=== PATIENT | female | born 1980 | race Caucasian/White ===

== ENCOUNTER 2017-03-01 06:22 | Emergency (ER) | payer BC ==
[~2017-03-01] VITALS: Wt 109.0 kg
[~2017-03-01 06:22] MED LIST: LEVO137T3 PO
--- NOTE | 2017-03-01 06:41 | ERD ---
ER Documentation Chief Complaint Date/Time DATE: 03/01/17 Chief Complaint Left wrist pain and swelling HPI The patient is a 36-year-old right-hand dominant female with past medical history of hypothyroidism, who presents to the Emergency Department with complaint of left wrist pain and swelling for the past 4 days. The patient reports that on Saturday she noted mild pain and swelling to the dorsum of the left wrist. The pain is localized to the ulnar aspect, and radiates to and from the left medial elbow. It is associated with intermittent paresthesias, that extend through the patient's 4th and 5th digits of the hand. The pain is worse with movement, palpation, pronation/supination, and mildly improved at rest. She denies any numbness or weakness of the distal extremity. Denies any restricted range of motion. Denies any fevers, sweats, chills, nausea or vomiting. Denies history of similar symptoms in the past. Denies any falls, injury or trauma to the wrist. Denies any erythema or warmth. ROS All systems reviewed and are negative except as per history of present illness. Medications Home Meds Active Scripts Acetaminophen* (Tylophen*) 500 Mg Capsule, 1 CAP PO Q6H Y for PAIN AND OR ELEVATED TEMP, #20 CAP Prov:SMITH WINN PA-C 03/01/17 Reported Medications Levothyroxine Sodium* (Levothyroxine Sodium*) 137 Mcg Tablet, 137 MCG PO AC BREAKFAST, TAB 08/27/14 Allergies Allergies: Coded Allergies: ibuprofen (Unverified Allergy, Unknown, 01/21/15) PMhx/Soc History of Surgery: No Anesthesia Reaction: No Hx Neurological Disorder: Yes (hyperthyroidism) Hx Respiratory Disorders: No Hx Cardiac Disorders: No Hx Psychiatric Problems: No Hx Miscellaneous Medical Probl: Yes (Hypothyroidism) Hx Alcohol Use: No Hx Substance Use: No Hx Tobacco Use: No Physical Exam Vitals Vital Signs Date Time Temp Pulse Resp B/P Pulse Ox O2 Delivery O2 Flow Rate FiO2 03/01/17 06:30 97.8 82 17 138/66 96 Physical Exam GENERAL: Well-developed, well-nourished, female, in no acute distress. Nontoxic. Well-appearing. HEENT: Head is normocephalic, atraumatic. No scleral pallor or icterus. Pupils equal, round and reactive to light. Conjunctiva pink. Moist mucous membranes. NECK: Supple. RESPIRATORY: Lungs are clear to auscultation bilaterally. Equal breath sounds. Normal expiratory effort. CARDIOVASCULAR: Regular rate and rhythm. S1 and S2 normal. EXTREMITIES: Moderate swelling to the dorsum of the left wrist joint with tenderness to palpation. Negative Tinel sign at the wrist. Positive Tinel sign at the left elbow. Negative Phalen maneuver. Negative Suresh's test. Normal skin perfusion. Full range of motion of both the upper and lower extremities bilaterally. Muscle tone is normal. Distal neurovascular status intact. Compartments are soft. Distal pulses are palpable, 2+ bilaterally. Capillary refill is less than 2 seconds. NEUROLOGIC: The patient is alert, awake, and oriented x 3. No focal neurologic deficits. Motor and sensation grossly intact. INTEGUMENT: Skin is intact. Warm and dry. No rashes, no petechiae present. Normal turgor. PSYCHIATRIC: Cooperative; appropriate. Results 24 hrs Current Medications Medications (Trade) Dose Ordered Sig/Mario Route PRN Reason Start Time Stop Time Status Last Admin Dose Admin Ibuprofen (Motrin) 600 mg ONCE ONCE PO 03/01/17 07:00 03/01/17 07:01 DC Procedures/MDM DIAGNOSTIC TESTS AND INTERPRETATION: PROCEDURE: Left wrist series CLINICAL INDICATION: swelling, pain TECHNIQUE: AP, lateral and bilateral oblique views of the left wrist were performed. A total 4 images were obtained COMPARISON: No prior studies are available for comparison. FINDINGS:There is no evidence of acute fractures or dislocations. Bony mineralization is normal. There are no focal bony blastic or lytic lesions. No evidence of erosions. The soft tissues are unremarkable. IMPRESSION:Negative left wrist series. Physician Dafne Date Time Electronically viewed and signed by Physician Dafne on 03/01/2017 07:15 PROCEDURE: US left upper extremity venous. CLINICAL INDICATION: Left upper extremity swelling TECHNIQUE: Multiple longitudinal and transverse images of the left upper extremity veins were obtained with kiser scale and color Doppler imaging. 2D grayscale measurements with compression, color Doppler flow, and augmentation was performed. COMPARISON: None. FINDINGS: The left jugular vein, subclavian vein, axillary vein, brachial, ulnar , and radial veins are normally compressible throughout. The left upper basilic vein is not well visualized. The cephalic vein is patent. IMPRESSION: No evidence of a deep vein thrombosis involving the left upper extremity. .Joe Ortiz MD, Date Time Electronically viewed and signed by .Joe Ortiz MD, MD on 03/01/2017 07:40 SPLINT APPLICATION: INDICATION: Left ulnar neuropathy. LOCATION: Left upper extremity. TYPE OF SPLINT: Velcro wrist splint NEUROVASCULAR EXAM: The patients extremity was neurovascularly intact prior to and status post splint placement. MEDICAL DECISION MAKING: This is a 36-year-old female presenting to the Emergency Department with complaint of paresthesias and pain radiating from the left medial elbow down towards the fourth and fifth digits of the left upper extremity. On physical examination, she had a positive Tinel test at the left elbow, indicating possible ulnar neuropathy. She had no recent trauma, falls or injuries, no gross deformities noted, and therefore I doubt fracture, dislocation or subluxation. No evidence of fracture, dislocation, subluxation on x-ray. Normal range of motion, with no increased tenseness of the muscles, no evidence of compartment syndrome. Distally she was neurovascularly intact with no deficits, no restricted range of motion. No focal erythema or warmth, no fevers or systemic symptoms, no evidence of septic joint. Patient had a normal neurologic examination, she is young and healthy, and therefore I doubt CVA/mass/lesion. No evidence of DVT. After rest the patient reports no new complaints and decreased pain. Discussed that patient's results may be secondary to underlying ulnar neuropathy. She is advised to follow up with her primary medical provider and/or orthopedics in 2-3 days for reevaluation and further management, or return to the ED sooner for any new or worsening symptoms. Further testing may be performed as an outpatient. Velcro wrist splint placed to LUE. I shared my medical decision making and plan with the patient and mom, who comply and agree with plan. At the time of discharge, all questions were answered. Departure Diagnosis: Primary Impression: Ulnar neuropathy Laterality: left Qualified Code: G56.22 - Ulnar neuropathy of left upper extremity Condition: Stable Patient Instructions: Neuropathy, Peripheral Referrals: OLIVIA MILLER MD Additional Instructions: Call your primary care doctor TOMORROW for an appointment during the next 2-3 days.See the doctor sooner or return here if your condition worsens before your appointment time. SMITH WINN PA-C March 01, 2017 06:40
[2017-03-01] MEDS ORDERED: IBUPROFEN 600 MG TAB PO ONE (07:00)
--- NOTE | 2017-03-01 07:15 | RADRPT ---
PROCEDURE: Left wrist series CLINICAL INDICATION: swelling, pain TECHNIQUE: AP, lateral and bilateral oblique views of the left wrist were performed. A total 4 [place] ges were obtained COMPARISON: No prior studies are available for comparison. FINDINGS: There is no evidence of acute fractures or dislocations. Bony mineralization is normal. There are no focal bony blastic or lytic lesions. No evidence of erosions. The soft tissues are unremarkable . IMPRESSION: Negative left wrist series. RPTAT:AAJJ Physician Dafne Date Time Electronically viewed and signed by Valeriy Galloway Physician on 03/01/2017 07:15 /
--- NOTE | 2017-03-01 07:35 | RADRPT ---
PROCEDURE: US left upper extremity venous. CLINICAL INDICATION: Left upper extremity swelling TECHNIQUE: Multiple longitudinal and transverse images of the left upper extremity veins were obta ined with kiser scale and color Doppler imaging. 2D grayscale measurements with compression, color D oppler flow, and augmentation was performed. COMPARISON: None. FINDINGS: The left jugular vein, subclavian vein, axillary vein, brachial, ulnar, and radial veins are normall y compressible throughout. The left upper basilic vein is not well visualized. The cephalic vein i s patent. IMPRESSION: 1. No evidence of a deep vein thrombosis involving the left upper extremity. RPTAT: EE .Joe Ortiz MD, MD Date Time Electronically viewed and signed by .Joe Ortiz MD, MD on 03/01/2017 07:40 .C/
[2017-03-01] MEDS ORDERED: IBUP-1542 PO (08:09)
[2017-03-01] MEDS ORDERED: ACET500C5 PO (08:13)
== END 2017-03-01 08:11 | disposition home or self-care (01) ==
LOC: FTE 06:22
DX: G56.22 Lesion of ulnar nerve, left upper limb (principal); E03.9 Hypothyroidism, unspecified
CPT/HCPCS: 93971

== ENCOUNTER 2017-06-23 06:15 | Emergency (ER) | payer BC ==
[~2017-06-23] VITALS: Ht 160 cm; Wt 111.0 kg
[~2017-06-23 06:15] MED LIST changes: +ACET500C5 PO
[2017-06-23 06:18] VITALS: Ht 160 cm; Wt 111.0 kg
[2017-06-23 07:42] LABS: ADD UMIC YES; UR ASCORBIC ACID NEGATIVE (NEGATIVE); UR BILIRUBIN (Dip) NEGATIVE (NEGATIVE); UR BLOOD (Dip) 1+ mg/dL (NEGATIVE); UR CLARITY CLEAR (CLEAR); UR COLOR YELLOW (YELLOW); UR GLUCOSE (Dip) NEGATIVE (NEGATIVE); UR KETONES (Dip) NEGATIVE (NEGATIVE); UR LEUKOCYTE ESTERASE (Dip) NEGATIVE Leu/ul (NEGATIVE); UR MUCUS FEW /HPF (NONE SEEN); UR NITRITE (Dip) NEGATIVE (NEGATIVE); UR RBC 1 /HPF (0-5); UR SPECIFIC GRAVITY (Dip) 1.014 (1.003-1.030); UR TOTAL PROTEIN (Dip) NEGATIVE (NEGATIVE); UR UROBILINOGEN (Dip) NEGATIVE (NEGATIVE)
--- NOTE | 2017-06-23 08:11 | RADRPT ---
PROCEDURE: US Pelvis CLINICAL INDICATION: Pelvic pain. TECHNIQUE: Transabdominal sonographic evaluation of the pelvis was performed. COMPARISON: None. FINDINGS: Heterogeneous uterus with a single fibroid arising from the fundus measuring approximately 7.2 x 6.2 x 5.8 cm Normal flow to both ovaries. No adnexal mass. There is a cystic lesion measuring up to 5.7 x 5.6 x 4.9 cm. No free pelvic fluid. MEASUREMENTS: Uterus: 11.4 x 6.0 x 7.7 cm, anteverted. Endometrium: 0.5 cm. Right ovary size: 3.8 x 3.1 x 3.9 cm Left ovary size: 5.9 x 6.6 x 5.5 cm IMPRESSION: Examination is limited by the absence of endovaginal views. Heterogeneous uterus with a dominant large fibroid arising from the fundus. Large 5.7 cm cystic lesion arising from the left ovary, which cannot be characterized as a simple cy st on this limited examination. Recommend sonographic follow-up or characterization with contrast en hanced MRI of the pelvis in the non-acute setting. RPTAT: EE .Joe Ortiz MD, MD Date Time Electronically viewed and signed by .Joe Ortiz MD, MD on 06/23/2017 08:16 .C/
--- NOTE | 2017-06-23 08:14 | ERD ---
ER Documentation Chief Complaint Date/Time DATE: 06/23/17 TIME: 08:11 Chief Complaint pelvic pain x 1 week HPI 37-year-old female presents complaining of pelvic pain for the past week. Patient states that the pain is intermittent mild to moderate. Patient states that she went to see her DIRECTOR AMBULATORY in the past and was told that she has fibroids. Patient states that she was told to start control she is on her start from next month. She denies any fevers, dysuria. ROS All systems reviewed and are negative except as per history of present illness. Medications Home Meds Active Scripts Tramadol HCl (Tramadol HCl) 50 Mg Tablet, 50 MG PO Q4 Y for PAIN, #20 TAB Prov:RAHEEM BAEZ PA-C 06/23/17 Acetaminophen* (Tylophen*) 500 Mg Capsule, 1 CAP PO Q6H Y for PAIN AND OR ELEVATED TEMP, #20 CAP Prov:SMITH WINN PA-C 03/01/17 Reported Medications Levothyroxine Sodium* (Levothyroxine Sodium*) 137 Mcg Tablet, 137 MCG PO AC BREAKFAST, TAB 08/27/14 Allergies Allergies: Coded Allergies: ibuprofen (Unverified Allergy, Unknown, 01/21/15) PMhx/Soc Medical and Surgical Hx: pt denies Medical Hx, pt denies Surgical Hx History of Surgery: No Anesthesia Reaction: No Hx Neurological Disorder: Yes (hyperthyroidism) Hx Respiratory Disorders: No Hx Cardiac Disorders: No Hx Psychiatric Problems: No Hx Miscellaneous Medical Probl: Yes Hx Alcohol Use: No Hx Substance Use: No Hx Tobacco Use: No Physical Exam Vitals Vital Signs Date Time Temp Pulse Resp B/P Pulse Ox O2 Delivery O2 Flow Rate FiO2 06/23/17 06:18 97.3 88 20 109/66 100 Physical Exam Const: [] Head: Atraumatic Eyes: Normal Conjunctiva ENT: Normal External Ears, Nose and Mouth. Neck: Full range of motion..~ No meningismus. Resp: Clear to auscultation bilaterally Cardio: Regular rate and rhythm, no murmurs Abd: Tender to palpation the pelvic region Skin: No petechiae or rashes Back: No midline or flank tenderness Ext: No cyanosis, or edema Neur: Awake and alert Psych: Normal Mood and Affect Results 24 hrs Laboratory Tests Test 06/23/17 06:36 Urine Color YELLOW Urine Clarity CLEAR Urine pH 5.0 Urine Specific [place] 1.014 Urine Ketones NEGATIVEmg/dL Urine Nitrite NEGATIVEmg/dL Urine Bilirubin NEGATIVEmg/dL Urine Urobilinogen NEGATIVEmg/dL Urine Leukocyte Esterase NEGATIVELeu/ul Urine Microscopic RBC 1/HPF Urine Microscopic WBC 1/HPF Urine Mucus FEW/HPF Urine Hemoglobin 1+mg/dL Urine Glucose NEGATIVEmg/dL Urine Total Protein NEGATIVEmg/dl Procedures/MDM 37-year-old female presents with pelvic pain likely due to fibroids and left ovarian cyst. No evidence of torsion, ruptured ovarian cyst, urinary tract infection or surgical abdomen. UA negative, urine negative. Patient stable to be discharged home to follow-up with DIRECTOR AMBULATORY for further management. Prescription for ibuprofen was provided. Return precautions were given. She understands and agrees this plan Departure Diagnosis: Primary Impression: Acute pain in female pelvis Additional Impressions: Ovarian cyst Fibroids Condition: Stable RAHEEM BAEZ PA-C Jun 23, 2017 08:13
[2017-06-23] MEDS ORDERED: TRAM50TA2 PO (08:15)
== END 2017-06-23 08:33 | disposition home or self-care (01) ==
LOC: FTE 06:15
DX: D25.9 Leiomyoma of uterus, unspecified (principal); N83.292 Other ovarian cyst, left side
CPT/HCPCS: 76830; 76856; 81001

== ENCOUNTER 2017-12-13 21:13 | Emergency (ER) | END 2017-12-13 22:23 | disposition home or self-care (01) ==

== ENCOUNTER → 2018-04-11 | Outpatient (CLI) | END | disposition home or self-care (01) ==

== ENCOUNTER 2018-04-30 03:29 | Emergency (ER) | END 2018-04-30 05:38 | disposition home or self-care (01) ==

== ENCOUNTER 2019-04-04 06:46 | Emergency (ER) | payer BC ==
[~2019-04-04] VITALS: Ht 162.6 cm; Wt 106.3 kg
[~2019-04-04 06:46] MED LIST changes: +CYCL10TA7 PO; +DOCU-144 PO; +FER325 PO; +HYDR-4011 PO; +ONDA4TAB14 PO; +TRAM50TA2 PO
[2019-04-04 06:48] VITALS: BP 123/79; PULSE 74; RESP 18; Ht 162.6 cm; Wt 106.3 kg
[2019-04-04] MEDS ORDERED: IBUPROFEN 600 MG TAB PO ONE (07:30)
[2019-04-04] MEDS ORDERED: PHEN177S43 MT (07:48)
[2019-04-04] MEDS ORDERED: IBUP-1542 PO (07:48)
--- NOTE | 2019-04-04 09:25 | ERD ---
ER Documentation Chief Complaint Chief Complaint throat pain/swelling and fever x 4 days HPI 39-year-old female presenting to the emergency department complaining of intermittent sore throat for the past 4 days. Overall symptoms have worsened. She states she has severe pain when swallowing food or drinks. She tried ibuprofen without significant relief. She denies any fevers, chills, or other symptoms at this time. ROS All systems reviewed and are negative except as per history of present illness. Medications Home Meds Active Scripts Phenol* (Chloraseptic* [place]) 177 Ml [place].pump, 2 SPRAY MT Q2H PRN for SORE THROAT, #1 BOTTLE Prov:JYOTI HESS PA-C 04/04/19 Ibuprofen* (Motrin*) 600 Mg Tab, 600 MG PO Q6, #30 TAB Prov:JYOTI HESS PA-C 04/04/19 Ondansetron (Ondansetron Odt) 4 Mg Tab.rapdis, 4 MG PO Q6H PRN for NAUSEA AND/OR VOMITING, #20 TAB Prov:MAGDALENE KELLEY NP 04/30/18 Hydrocodone/Acetaminophen ([place] 5-325 Tablet) 1 Each Tablet, 1 TAB PO Q6H PRN for SEVERE PAIN LEVEL 7-10, #20 TAB Prov:MAGDALENE KELLEY NP 04/30/18 Docusate Sodium* (Colace*) 100 Mg Capsule, 100 MG PO TID, #30 CAP Prov:MAGDALENE KELLEY NP 04/30/18 Ferrous Sulfate* (Ferrous Sulfate*) 325 Mg Tabec, 325 MG PO BID, #60 TAB Prov:MAGDALENE KELLEY NP 04/30/18 Cyclobenzaprine Hcl* (Cyclobenzaprine Hcl*) 10 Mg Tablet, 10 MG PO TID, #15 TAB Prov:AMANDA PONCE PA-C 12/13/17 Hydrocodone/Acetaminophen ([place] 5-325 Tablet) 1 Each Tablet, 1 TAB PO Q6H PRN for PAIN, #7 TAB Prov:AMANDA PONCE PA-C 12/13/17 Tramadol HCl (Tramadol HCl) 50 Mg Tablet, 50 MG PO Q4 PRN for PAIN, #20 TAB Prov:RAHEEM BAEZ PA-C 06/23/17 Acetaminophen* (Tylophen*) 500 Mg Capsule, 1 CAP PO Q6H PRN for PAIN AND OR TARA VATED TEMP, #20 CAP Prov:SMITH WINN ANDREA 03/01/17 Reported Medications Levothyroxine Sodium* (Levothyroxine Sodium*) 137 Mcg Tablet, 137 MCG PO AC BREAKFAST, TAB 08/27/14 Allergies Allergies: Coded Allergies: ibuprofen (Unverified Allergy, Unknown, 04/30/18) PMhx/Soc History of Surgery: Yes (gallbladder) Anesthesia Reaction: No Hx Neurological Disorder: Yes (hyperthyroidism) Hx Respiratory Disorders: No Hx Cardiac Disorders: No Hx Psychiatric Problems: No Hx Miscellaneous Medical Probl: Yes Hx Alcohol Use: No Hx Substance Use: No Hx Tobacco Use: No Smoking Status: Never smoker FmHx Family History: No diabetes Physical Exam Vitals Vital Signs Date Temp Pulse Resp B/P (MAP) Pulse Ox O2 O2 Flow FiO2 Time Delivery Rate 04/04/19 97.6 74 18 123/79 99 06:48 (94) Physical Exam Const: No acute distress Head: Atraumatic Eyes: Normal Conjunctiva ENT: Normal External Ears, Nose and Mouth. Mild pharyngeal erythema. Uvula is midline without inflammation. No tonsillar hypertrophy. No exudates. Neck: Full range of motion. No meningismus. Resp: Clear to auscultation bilaterally Cardio: Regular rate and rhythm, no murmurs Skin: No petechiae or rashes Ext: No cyanosis, or edema Neur: Awake and alert Psych: Normal Mood and Affect Results 24 hrs Current Medications Medications Dose Sig/Mario Start Time Status Last (Trade) Ordered Route PRN Stop Time Admin Dose Reason Admin Ibuprofen 600 mg ONCE ONCE 04/04/19 DC 04/04/19 (Motrin) PO 07:30 07:27 04/04/19 07:31 Procedures/MDM 39-year-old female presents with signs and symptoms most consistent with pharyngitis, likely viral etiology. Rapid strep was negative. I doubt peritonsillar abscess. I doubt retropharyngeal abscess, meningitis, sepsis, or other emergencies. Patient is afebrile and nontoxic and well-appearing and she is stable and appropriate for discharge and further outpatient management with prescriptions. Patient will need 24 to 48-hour follow-up with her primary care physician. The patient was explicitly instructed to return to the department immediately for any new or worsening or concerning symptoms. Shared my medical decision making with the patient and she understands and agrees with the plan. Departure Diagnosis: Primary Impression: Sore throat Condition: Fair Patient Instructions: Self-Care for Sore Throats Referrals: WALTER BAER MD Additional Instructions: Call your primary care doctor TOMORROW for an appointment during the next 1-2 days.See the doctor sooner or return here if your condition worsens before your appointment time. JYOTI HESS PA-C Apr 04, 2019 09:24
== END 2019-04-04 08:02 | disposition home or self-care (01) ==
LOC: FTE 06:46
DX: J02.9 Acute pharyngitis, unspecified (principal)
CPT/HCPCS: 87880; 99283

== ENCOUNTER 2019-07-04 10:25 | Emergency (ER) | payer BC ==
[~2019-07-04] VITALS: Ht 165.1 cm; Wt 104.5 kg
[~2019-07-04 10:25] MED LIST changes: +IBUP-1542 PO; +METH500T PO; +PHEN177S43 MT
[2019-07-04 10:28] VITALS: BP 118/78; PULSE 99; RESP 20; Ht 165.1 cm; Wt 104.5 kg
[2019-07-04] MEDS ORDERED: METHOCARBAMOL 500 MG TAB PO ONE (11:00)
[2019-07-04] MEDS ORDERED: ACETAMINOPHEN 325 MG TAB PO ONE (11:00)
== END 2019-07-04 12:29 | disposition home or self-care (01) ==
LOC: FTE 10:25
DX: S99.912A Unspecified injury of left ankle, initial encounter (principal); E03.9 Hypothyroidism, unspecified; S99.922A Unspecified injury of left foot, initial encounter; X58.XXXA Exposure to other specified factors, initial encounter; Y92.89 Other specified places as the place of occurrence of the external cause
CPT/HCPCS: 73610; 81025